=== PATIENT | female | born 1955 | race Caucasian/White ===

== ENCOUNTER 2018-11-17 06:05 | Emergency (ER) | payer BC ==
--- NOTE | 2018-11-17 06:48 | ED ---
Upper Extremity Pain - HPI Summary HPI Summary: Patient is a 63-year-old female presenting to the ED with a complaint of left shoulder and left wrist injury after a fall last evening. She states she slipped and fell last evening outside landing on her wrist and shoulder. However, she states she has no concerns with her shoulder and is more concerned with slight discomfort in the left anterior chest wall from the shoulder injury radiating to this area. She has full ROM of the shoulder without discomfort. She is able to flex and extend at the wrist. There is a bruise located on the dorsum of the wrist just proximal to the joint. Denies any numbness or tingling. Denies any color temperature changes to the fingertips. Denies any ROM limitations. No pain on palpation to the forearm otherwise. She denies hitting her head or LOC. - History of Current Complaint Chief Complaint: EDExtremityUpper Stated Complaint: FALL, LEFT SHOULDER/HAND PAIN Time Seen by Provider: 11/17/18 06:07 Hx Obtained From: Patient Mechanism Of Injury: Direct Blow Onset/Duration: Started Hours Ago Timing: Constant Severity Initially: Moderate Severity Currently: Moderate Pain Location: Shoulder, Wrist Character: Aching Aggravating Factor(s): Movement, Lifting, Flexion, Extension Alleviating Factor(s): Rest Associated Signs & Symptoms: Negative: Swelling, Redness, Bruising, Weakness, Numbness/Tingling Related History: Dominant Hand Right - Risk Factors Non-Orthopedic Risk Factor: Negative DVT Risk Factors: Negative Septic Arthritis Risk Factor: Negative Compartment Syndrome Risk Factors: Pain - Allergies/Home Medications Allergies/Adverse Reactions: Allergies Allergy/AdvReac Type Severity Reaction Status Date / Time No Known Allergies Allergy Verified 11/17/18 06:08 Home Medications: Home Medications NK [No Home Medications Reported] 11/17/18 [History Confirmed 11/17/18] PMH/Surg Hx/FS Hx/Imm Hx Previously Healthy: Yes - Cancer History Hx Chemotherapy: No Hx Radiation Therapy: No - Immunization History Hx Pertussis Vaccination: No Immunizations Up to Date: Yes Infectious Disease History: No Infectious Disease History: Denies: Traveled Outside the [place] in Last 30 Days - Social History Occupation: Employed Full-time Lives: Alone Alcohol Use: "wine on weekends" Substance Use Type: Reports: None Smoking Status (MU): Light Every Day Tobacco Smoker Review of Systems Constitutional: Negative Negative: Fever, Chills, Fatigue, Skin Diaphoresis Negative: Palpitations, Chest Pain Negative: Shortness Of Breath, Cough Genitourinary: Negative Positive: no symptoms reported, see HPI Positive: Myalgia - left wrist and left shoulder pain Skin: Negative Neurological: Negative All Other Systems Reviewed And Are Negative: Yes Physical Exam Triage Information Reviewed: Yes Vital Signs On Initial Exam: Initial Vitals Temp Pulse Resp BP Pulse Ox 97.7 F 107 16 144/85 93 11/17/18 06:07 11/17/18 06:07 11/17/18 06:07 11/17/18 06:07 11/17/18 06:07 Vital Signs Reviewed: Yes Appearance: Positive: Well-Appearing, Well-Nourished Skin: Positive: Skin Color Reflects Adequate Perfusion Head/Face: Positive: Normal Head/Face Inspection Eyes: Positive: EOMI, SYLWIA, Conjunctiva Clear Neck: Positive: Supple Respiratory/Lung Sounds: Positive: Clear to Auscultation, Breath Sounds Present Cardiovascular: Positive: RRR, Pulses are Symmetrical in both Upper and Lower Extremities Musculoskeletal: Positive: Pain @ - left dorsum of the wrist, left anterior chest wall pain with palpation without ecchymosis or signs of trauma Neurological: Positive: Sensory/Motor Intact, Facial Symmetry, Speech Normal Psychiatric: Positive: Normal, Affect/Mood Appropriate AVPU Assessment: Alert Diagnostics - Vital Signs Vital Signs Temp Pulse Resp BP Pulse Ox 11/17/18 06:07 97.7 F 107 16 144/85 93 - Laboratory Lab Statement: Any lab studies that have been ordered have been reviewed, and results considered in the medical decision making process. Course/Dx - Course Course Of Treatment: Patient appears well on arrival. Patient states last evening she fell directly onto her left wrist and shoulder. She is complaining of pain to the left anterior chest wall rated a 2/10 only with palpation and left wrist pain an 8/10 worse with palpation or flexion and extension, better with rest. Physical examination, there is slight tenderness over the dorsum of the wrist, patient is able to flex and extend. There are no NV deficits. Patient is able to move about the shoulder joint with full ROM without discomfort. X-ray of the wrist and chest obtained. - Diagnoses Differential Diagnosis/HQI/PQRI: Positive: Fracture (Closed), Strain, Sprain Provider Diagnoses: Fall Discharge - Sign-Out/Discharge Documenting (check all that apply): Patient Departure - Discharge Plan Condition: Stable Disposition: HOME Referrals: Mei Donaldson MD [Primary Care Provider] - Additional Instructions: Continue with heat to the chest wall and wrist Ibuprofen 600mg three times daily for discomfort and inflammation Return if you develop any worsening shortness of breath - Billing Disposition and Condition Condition: STABLE Disposition: Home
[2018-11-17 08:12] VITALS: BP 138/80
== END 2018-11-17 08:11 | disposition home or self-care (01) ==
LOC: ED 06:05
DX: S49.92XA Unspecified injury of left shoulder and upper arm, initial encounter (principal); S69.92XA Unspecified injury of left wrist, hand and finger(s), initial encounter; W19.XXXA Unspecified fall, initial encounter; Y92.9 Unspecified place or not applicable; F17.210 Nicotine dependence, cigarettes, uncomplicated
CPT/HCPCS: 71046; 99281